=== PATIENT | male | born 1950 | race Hispanic/Latino ===

== ENCOUNTER → 2023-03-05 06:22 | Day surgery (SDC) | payer OTHER, SELFPAY ==
[2023-03-05 09:37] LABS: Glucose - Point of Care 110 mg/dl (70-99)
== END ==
LOC: GI 06:22
PROVIDERS: ATTENDING PHYSICIAN Internal Medicine Gastroenterology; FAMILY PHYSICIAN Internal Medicine
DX: D12.2 Benign neoplasm of ascending colon (principal); D12.3 Benign neoplasm of transverse colon; Z86.010 Personal history of colon polyps; K57.30 Diverticulosis of large intestine without perforation or abscess without bleeding
CPT/HCPCS: 45385; 88305; 82962

== ENCOUNTER → 2023-09-24 06:45 | Day surgery (SDC) | payer OTHER, SELFPAY ==
[2023-09-24 07:50] LABS: Glucose - Point of Care 102 mg/dl (70-99)
== END ==
LOC: GI 06:45
PROVIDERS: ATTENDING PHYSICIAN Internal Medicine Gastroenterology
DX: Z09 Encounter for follow-up examination after completed treatment for conditions other than malignant neoplasm (principal); K57.30 Diverticulosis of large intestine without perforation or abscess without bleeding; D12.5 Benign neoplasm of sigmoid colon; K63.5 Polyp of colon; Z98.890 Other specified postprocedural states; Z86.010 Personal history of colon polyps
CPT/HCPCS: 45385; 45380; 88305; 82962; 88313; 88341; 88342

== ENCOUNTER 2024-03-17 06:20 | Day surgery (SDC) | payer OTHER, SELFPAY ==
[2024-03-17 08:41] LABS: Glucose - Point of Care 131 mg/dl (70-99)
== END 2024-03-17 10:46 | disposition home or self-care (01) ==
LOC: GI 06:20
PROVIDERS: ATTENDING PHYSICIAN Internal Medicine Gastroenterology
DX: Z12.11 Encounter for screening for malignant neoplasm of colon (principal); K63.5 Polyp of colon; K57.30 Diverticulosis of large intestine without perforation or abscess without bleeding; Q43.8 Other specified congenital malformations of intestine; K64.8 Other hemorrhoids; Z86.0101 Personal history of adenomatous and serrated colon polyps
CPT/HCPCS: 45380; 88305; 82962